=== PATIENT | female | born 2000 ===

== ENCOUNTER 2023-04-29 18:37 | Emergency (ER) | payer OTHER ==
[2023-04-29] MEDS ORDERED: Sodium Chloride 0.9% 10 ML Syringe FLUSH PRN (19:12)
[2023-04-29 19:24] LABS: BASOPHILS ABSOLUTE AUTO 0.02 K/uL (0.00-0.20); BASOPHILS PERCENT AUTO 0.2 % (0.0-2.0); EOSINOPHILS ABSOLUTE AUTO 0.08 K/uL (0.00-0.50); EOSINOPHILS PERCENT AUTO 0.7 % (0.0-5.0); HEMATOCRIT 35.3 % (34.0-46.0); HEMOGLOBIN 11.4 g/dL (11.7-15.5); LYMPHOCYTES ABSOLUTE AUTO 2.91 K/uL (0.50-3.50); LYMPHOCYTES PERCENT AUTO 26.1 % (10.0-50.0); MEAN CORPUSCULAR HEMOGLOBIN 25.5 pg (28.2-33.3); MEAN CORPUSCULAR HGB CONC 32.3 g/dL (31.7-36.0); MONOCYTES ABSOLUTE AUTO 0.61 K/uL (0.00-1.00); MONOCYTES PERCENT AUTO 5.5 % (2.0-14.0); NEUTROPHILS ABSOLUTE AUTO 7.53 K/uL (1.40-7.00); NEUTROPHILS PERCENT AUTO 67.5 % (45.0-80.0); PLATELET COUNT,PLT 333 K/uL (150-350); RED BLOOD CELL COUNT 4.47 M/uL (3.77-5.09); RED CELL DISTRIBUTION WIDTH 15.4 % (11.2-14.1); WHITE BLOOD CELL COUNT,WBC 11.2 K/uL (4.0-10.2)
[2023-04-29 19:45] LABS: ALANINE AMINOTRANSFERASE,ALT 5 U/L (12-78); ALKALINE PHOSPHATASE 62 IU/L (46-116); ANION GAP 7.2 meq/L (7-15); ASPARTATE AMNIOTRANSFERASE,AST 8 U/L (15-37); BLOOD UREA NITROGEN,BUN 10 mg/dL (7-18); CALCIUM 9.5 mg/dL (8.5-10.1); CARBON DIOXIDE,CO2 28.8 mmol/L (21.0-32.0); CHLORIDE,CL 105 mmol/L (98-107); CREATININE 0.85 mg/dL (0.51-1.17); GLUCOSE RANDOM 101 mg/dL (70-99); LIPASE 23 U/L (16-77); PROTEIN TOTAL,TP 7.3 g/dL (6.4-8.2); SODIUM,NA 141 mmol/L (136-145)
[2023-04-29 19:46] LABS: ESTIMATED GFR 99 mL/min (>=60)
[2023-04-29 20:17] LABS: APPEARANCE,URINE SLIGHTLY CLOUDY; BILIRUBIN,URINE NEGATIVE (NEGATIVE); COLOR,URINE YELLOW; GLUCOSE,URINE NEGATIVE (NEGATIVE); KETONES,URINE NEGATIVE (NEGATIVE); LEUKOCYTE ESTERASE,URINE LARGE (NEGATIVE); NITRITE,URINE POSITIVE (NEGATIVE); OCCULT BLOOD,URINE MODERATE (NEGATIVE); PROTEIN,URINE 30 mg/dL (NEGATIVE); UROBILINOGEN,URINE 0.2 E.U./dL (0.2-1.0)
[2023-04-29 20:25] LABS: BACTERIA,URINE MODERATE /HPF (NONE TO FEW); EPITHELIAL CELLS,URINE MODERATE /LPF; MUCUS,URINE FEW /LPF (NEGATIVE); WBC,URINE 50-75 /HPF
[2023-04-29] MEDS ORDERED: cefTRIAXone 1 GM in Sodium Chloride 0.9% 100 ML IV ONE (20:47)
[2023-04-29] MEDS ORDERED: Sodium Chloride 0.9% 1,000 ML IV ONE (20:47)
[2023-04-29] MEDS ORDERED: Ketorolac 15 MG/ML SDV IVPUSH ONE (21:01)
[2023-04-29] MEDS ORDERED: Ondansetron 4 MG/2 ML SDV IVPUSH ONE (21:02)
[2023-04-29] MEDS ORDERED: traMADol 50 MG Tab PO ONE (21:02)
[2023-04-29] MEDS ORDERED: Take Home: Nitrofurantoin Monohydrate/Macrocrystalline 100 MG, 6 Cap Pack PO ONE (21:07)
[2023-04-29] MEDS ORDERED: Take Home: traMADol 50 MG, 4 Tab Pack PO ONE (21:08)
[2023-04-29] MEDS ORDERED: Metoprolol Tartrate 25 MG Tab PO ONE (22:06)
[2023-04-29] MEDS ORDERED: Pantoprazole 40 MG Vial IVPUSH ONE (22:18)
== END 2023-04-29 23:35 | disposition home or self-care (01) ==
LOC: EDBD → LL.ED 18:37 → SUPCPDRO 18:37 → LL.ED 23:35
DX: N39.0 Urinary tract infection, site not specified (principal); R03.0 Elevated blood-pressure reading, without diagnosis of hypertension; Z79.84 Long term (current) use of oral hypoglycemic drugs; Z79.899 Other long term (current) drug therapy
CPT/HCPCS: 36415; 74022; 80053; 81001; 83605; 83690; 83735; 84484; 85025; 87086; 87088; 87186; 93005; 93010; 96365; 96375; 99284; 99284-25; A9270-GY; C9113; J0696; J1885; J2405; J3490; J7030

== ENCOUNTER 2023-07-29 09:12 | Emergency (ER) | payer OTHER ==
[2023-07-29 10:27] LABS: CORONAVIRUS COVID-19 NAA NEGATIVE (NEGATIVE); INFLUENZA A NAA NEGATIVE (NEGATIVE); INFLUENZA B NAA POSITIVE (NEGATIVE); RESPIRATORY SYNCYTIAL VIR NAA NEGATIVE (NEGATIVE)
[2023-07-29] MEDS ORDERED: Take Home: Albuterol 6.7 GM Inhaler, 1 Inhaler Pack INH ONE (10:37)
[2023-07-29] MEDS ORDERED: Take Home: Ketorolac 10 MG Tab, 4 Tab Pack PO ONE (10:37)
[2023-07-29] MEDS ORDERED: Take Home: Benzonatate 100 MG, 6 Cap Pack PO ONE (10:56)
== END 2023-07-29 11:10 | disposition home or self-care (01) ==
LOC: LL.ED 09:12
DX: J10.1 Influenza due to other identified influenza virus with other respiratory manifestations (principal); R03.0 Elevated blood-pressure reading, without diagnosis of hypertension
CPT/HCPCS: 0241U; 87081; 87430; A9270

== ENCOUNTER 2023-08-02 00:37 | Emergency (ER) | payer OTHER | END 2023-08-02 01:35 | disposition home or self-care (01) | LOC: LL.ED 00:37 | DX: J10.1 Influenza due to other identified influenza virus with other respiratory manifestations (principal); Z79.84 Long term (current) use of oral hypoglycemic drugs; Z79.899 Other long term (current) drug therapy; Z90.49 Acquired absence of other specified parts of digestive tract | CPT/HCPCS: 87081; 87430; 99283 ==